=== PATIENT | male | born 1985 | race Caucasian/White ===

== ENCOUNTER 2017-01-17 10:45 | Emergency (ER) | payer BC, OTHER ==
[2017-01-17] MEDS ORDERED: NORMAL SALINE 1,000 ML IV ONE (11:03)
[2017-01-17] MEDS ORDERED: ONDANSETRON HCL/PF 2 MG/ML VIAL IV ONE (11:03)
[2017-01-17] MEDS ORDERED: DICYCLOMINE HCL 10 MG/ML AMPUL IM ONE (11:03)
--- NOTE | 2017-01-17 11:11 | ERNOTE ---
Medical Problem HPI - Narrative Date of Service: 01/17/17 - General Chief Complaint: Nausea/Vomiting Time Seen by Provider: 01/17/17 10:59 Source: patient Exam Limitations: no limitations - Immun/Allergies/Home Medications Immunizations: IMMUNIZATION HX Immunizations Up to Date Yes History of Influenza Vaccine No Hx Pneumococcal Vaccination No Allergies/Adverse Reactions: Allergies poison carmenza extract [Poison Carmenza Extract] Allergy (Verified 05/06/14 06:57) Home Medications: HOME MEDICATIONS ALPRAZolam [Xanax] 0.5 mg PO BID PRN 05/06/14 [Last Taken Unknown] Ciprofloxacin HCl 500 mg PO BID #20 tablet 01/17/17 [Last Taken Unknown] metroNIDAZOLE [Flagyl] 500 mg PO QID #40 tab 01/17/17 [Last Taken Unknown] - History of Present History Narrative: Pt. comes in with c/o LUQ and RUQ abdominal pain and NVD for 24 hours. Pt. states tath the acutal pain started 48 hours ago but then the other symptoms started after that. Pt. denies any prehospital treatment, alleviating factors, or aggravating factors. Pt. denies any SOB, CP, fever, or sick contacts. Review of Systems - Review of Systems Constitutional: Present: chills, malaise. Absent: recent illness, fever, weakness, fatigue EYE: Present: no symptoms reported ENT: Present: no symptoms reported. Absent: nose congestion, nasal drainage, sore throat Respiratory: Present: no symptoms reported. Absent: shortness of breath, cough , wheezing Cardiology: Present: no symptoms reported. Absent: chest pain, palpitations, edema Gastrointestinal/Abdominal: Present: nausea, vomiting, diarrhea, abdominal pain , eating less, drinking less. Absent: constipation Genitourinary: Present: no symptoms reported. Absent: frequency, decreased urinary output Musculoskeletal: Present: no symptoms reported. Absent: back pain, joint pain Skin: Present: no symptoms reported. Absent: rash, change in color Neurological: Present: no symptoms reported. Absent: headache, dizziness/light- headedness, numbness, tingling All Other Systems: All systems neg except as marked - Patient's Past Medical History Patient History - Medical: Anxiety Patient History - Cardiac/Respiratory: No pertinent hx Patient History - Cancer: No Hx of Cancer Patient History - Other: None - Social History Living Situations: home Abuse History: No History of abuse Psych History: Hx of Anxiety, Current tx/ever been on anti-depressants or anti- anxiety meds Smoking Status: Current every day smoker Have you smoked in the past 12 months: Yes Alcohol Use: occasionally Drug Use: marijuana - Immunizations Immunizations Up to Date: Yes Hx Pneumococcal Vaccination: No History of Influenza Vaccine: No Physical Exam - Physical Exam General Appearance: Present: wd/wn, alert, no apparent distress Head Exam: Present: normal inspection, no evidence of injury Eye Exam: Normal inspection: bilateral, PERRL: bilateral, EOMI: bilateral Ears, Nose, Throat: Present: normal ENT inspection, normal pharynx Neck: Present: normal inspection, nontender. Absent: lymphadenopathy (R), lymphadenopathy (L) Respiratory: Present: no respiratory distress, normal breath sounds, no accessory muscle use, chest nontender, lungs clear Cardiovascular/Chest: Present: regular rate, rhythm, no murmur, normal peripheral pulses Gastrointestinal/Abdominal: Present: normal bowel sounds, nondistended, soft, no organomegaly, tenderness - RUQ Back Exam: Present: normal inspection, normal range of motion, no CVA tenderness , no vertebral tenderness Extremity Exam: Present: normal inspection Neurological Exam: Present: alert, oriented, normal mood/affect, no motor/ sensory deficits Skin Exam: Present: normal color, warm/dry. Absent: pallor, skin rash ED Progress - Date and Time Seen: Date and Time: 01/17/17 14:[address] Mace and he feels that this is likely infectious process Discussed with Nancy Squires pt. PCP and she will see pt. for follow up and I will start pt. on abx for follow up. - Results and Orders Patient's Lab Results:: I have reviewed the patient's lab results. - Vital Signs Patient's Vital Signs:: I have reviewed the patient's vital signs. Vital Signs: Vital Signs 01/17/17 10:52 Temperature 36.6 C Pulse Rate 61 Respiratory 16 Rate Blood Pressure 163/101 O2 Sat by Pulse 97 Oximetry - Progress/Reassessment Chief Complaint: Nausea/Vomiting Departure Clinical Impression: Enteritis - Departure Disposition: Home self-care Condition: Good Instructions: Viral Gastroenteritis, Adult, [id number], Colitis Additional Instructions: Please follow up with Nancy Squires her office will call you with appointment for 1-2 days. Prescriptions: Ciprofloxacin HCl 500 mg PO BID #20 tablet metroNIDAZOLE [Flagyl] 500 mg PO QID #40 tab
[2017-01-17 11:20] LABS: Hematocrit 52.5 % (42.0-52.0); Hemoglobin 18.4 gm/dL (13.5-18.0); Mean Cell Volume 88.2 fl (78-100); Mean Corpuscular Hemoglobin 30.9 pg (27-31); Neutrophil # 8.6 K/mm3 (1.3-6.0); Neutrophil % 70.2 % (42-75.0); Platelet Count 247 K/mm3 (150-450); Red Blood Count 5.95 M/mm3 (4.7-6.0); Red Cell Distribution Width 13.5 % (11.5-14.0); White Blood Count 12.3 K/mm3 (4.0-10.5)
[2017-01-17 11:36] LABS: Anion Gap 14.8 mmol/L (6.8-13.8); BUN/Creatinine Ratio 8.4 (9.0-21.6); Bilirubin, Total 0.7 mg/dL (0.0-1.1); Ca. Corrected For Albumin 8.5 mg/dL (8.4-10.2); Calcium * 8.8 mg/dL (7.9-10.9); Carbon Dioxide 25.9 mmol/L (24-32.6); Potassium 3.7 mmol/L (3.4-4.6); Total Protein 7.6 gm/dL (6.2-8.2)
[2017-01-17 11:47] LABS: Urine Bilirubin 3 mg/dl (NEGATIVE); Urine Blood Negative /ul (NEGATIVE); Urine Ketone 5 mg/dL (NEGATIVE); Urine Nitrite Negative (NEGATIVE); Urine Protein 30 mg/dL (NEGATIVE); Urine Specific Gravity >=1.030 SP.GR. (1.005-1.030); Urine Urobilinogen Normal (NORMAL)
[2017-01-17 11:54] LABS: Urine Appearance Clear; Urine Bacteria TRACE; Urine Color Dark Yellow; Urine RBC None Seen /hpf (0-5); Urine WBC 0-5 /hpf (0-5)
[2017-01-17] MEDS ORDERED: DIATRIZOATE MEGLUMINE, SODIUM 30 ML BTL ONE (12:04)
[2017-01-17] MEDS ORDERED: DIATRIZOATE MEGLUMINE, SODIUM 30 ML BTL PO ONE (12:08)
[2017-01-17 12:53] VITALS: BP 136/94
== END 2017-01-17 15:13 | disposition home or self-care (01) ==
LOC: ER 10:45
DX: K52.9 Noninfective gastroenteritis and colitis, unspecified (principal); F17.200 Nicotine dependence, unspecified, uncomplicated
CPT/HCPCS: 36415; 74020; 74177; 80053; 81001; 82150; 83690; 85025; 87045; 87046; 87086; 87177; 87209; 87493; 96372; 96374; 99283; J2405